=== PATIENT | female | born 1960 | race Caucasian/White ===

== ENCOUNTER → 2019-12-30 | Outpatient (CLI) | payer OTHER ==
[~2019-12-30] MED LIST: AMLO5TAB6 PO; ATOR40TA75 PO; CVS10CAP8 PO; DIFL200T PO; ECOT81TA5 PO; ESTR62CR PV; FLON1SPR; LIDO1CRE2 TOP; LISI10TA4 PO; OMEP-218 PO; TOPR50TA PO; TRES1INJ2 SC; VITA-157 PO; VITAD1000T PO
== END ==
LOC: M LABSMTC 08:34 → EDUNIT# 08:40
PROVIDERS: ATTEND Anesthesiology
DX: Z01.818 Encounter for other preprocedural examination (principal); Z11.59 Encounter for screening for other viral diseases
CPT/HCPCS: C9803; U0003

== ENCOUNTER 2020-01-02 10:23 | Day surgery (SDC) | payer OTHER ==
[~2020-01-02] VITALS: Ht 152.4 cm; Wt 71.8 kg
[~2020-01-02 10:23] MED LIST changes: +NS 1,000 ML IV ONE
[2020-01-02] MEDS ORDERED: fentaNYL 100 MCG/2 ML INJECTION (J3010) As Ordered ONE (12:10)
[2020-01-02] MEDS ORDERED: ePHEDrine SULFATE 25 MG/5 ML(5MG/ML) SYRINGE As Ordered ONE (12:22)
--- NOTE | 2020-01-02 13:01 | ROOR ---
Patient Name: Catarina Mccord Procedure Date: 01/02/2020 12:13 PM Date of : 1960 Age: 59 Room: [facility] Gender: Female Note Status: Finalized Procedure: Upper GI endoscopy Indications: Iron deficiency anemia Providers: Adan Fontana MD Referring MD: Adan Fontana MD Requesting Provider: Medicines: Monitored Anesthesia Care Complications: No immediate complications. Procedure: Pre-Anesthesia Assessment: - Prior to the procedure, a History and Physical was performed, and patient medications and allergies were reviewed. The patient is competent. The risks and benefits of the procedure and the sedation options and risks were discussed with the patient. All questions were answered and informed consent was obtained. Patient identification and proposed procedure were verified by the physician, the nurse and the anesthesiologist in the procedure room. Mental Status Examination: alert and oriented. Airway Examination: normal oropharyngeal airway and neck mobility. Respiratory Examination: clear to auscultation. CV Examination: normal. Prophylactic Antibiotics: The patient does not require prophylactic antibiotics. Prior Anticoagulants: The patient has taken no previous anticoagulant or antiplatelet agents. ASA Grade Assessment: II - A patient with mild systemic disease. After reviewing the risks and benefits, the patient was deemed in satisfactory condition to undergo the procedure. The anesthesia plan was to use monitored anesthesia care (MAC). Immediately prior to administration of medications, the patient was re-assessed for adequacy to receive sedatives. The heart rate, respiratory rate, oxygen saturations, blood pressure, adequacy of pulmonary ventilation, and response to care were monitored throughout the procedure. The physical status of the patient was re-assessed after the procedure. The Endoscope was introduced through the mouth, and advanced to the second part of duodenum. The upper GI endoscopy was accomplished without difficulty. The patient tolerated the procedure well. Findings: One tongue of salmon-colored mucosa was present from 39 to 41 cm. No other visible abnormalities were present. The maximum longitudinal extent of these esophageal mucosal changes was 2 cm in length. Biopsies were taken with a cold forceps for histology. Verification of patient identification for the specimen was done by the physician and nurse using the patient's name, date and medical record number. Estimated blood loss was minimal. Scattered mild inflammation characterized by erythema and granularity was found in the gastric antrum. Biopsies were taken with a cold forceps for Helicobacter pylori testing. The duodenal bulb and second portion of the duodenum were normal. Biopsies for histology were taken with a cold forceps for evaluation of celiac disease. Impression: - [place]-colored mucosa suspicious for short-segment Sanchez's esophagus. Biopsied. - Gastritis. Biopsied. - Normal duodenal bulb and second portion of the duodenum. Biopsied. Recommendation: - Patient has a contact number available for emergencies. The signs and symptoms of potential delayed complications were discussed with the patient. Return to normal activities tomorrow. Written discharge instructions were provided to the patient. - Resume previous diet. - Continue present medications. - Follow an antireflux regimen. - Await pathology results. - Return to GI clinic in [facility] (address [address], [address], [place] [address]) in 4 -- 6 weeks. Please call GI clinic @ [phone] for apppointment date and time. - Return to primary care physician. Adan Fontana MD Adan Fontana MD 01/02/2020 1:00:36 PM Electronically signed by Adan Fontana MD Number of Addenda: 0 Note Initiated On: 01/02/2020 12:13 PM Estimated Blood Loss: Estimated blood loss was minimal.
[2020-01-02 13:15] VITALS: BP 176/74
--- NOTE | 2020-01-02 13:35 | ROOR ---
Patient Name: Catarina Mccord Procedure Date: 01/02/2020 12:14 PM Date of : 1960 Age: 59 Room: [facility] Gender: Female Note Status: Finalized Procedure: Colonoscopy Indications: High risk colon cancer surveillance: Inflammatory bowel disease (unclassified) of 8 (or more) years duration with one-third (or more) of the colon involved Providers: Adan Fontana MD Referring MD: Adan Fontana MD Requesting Provider: Medicines: Monitored Anesthesia Care Complications: No immediate complications. Procedure: Pre-Anesthesia Assessment: - Prior to the procedure, a History and Physical was performed, and patient medications and allergies were reviewed. The patient is competent. The risks and benefits of the procedure and the sedation options and risks were discussed with the patient. All questions were answered and informed consent was obtained. Patient identification and proposed procedure were verified by the physician, the nurse and the anesthesiologist in the procedure room. Mental Status Examination: alert and oriented. Airway Examination: normal oropharyngeal airway and neck mobility. Respiratory Examination: clear to auscultation. CV Examination: normal. Prophylactic Antibiotics: The patient does not require prophylactic antibiotics. Prior Anticoagulants: The patient has taken no previous anticoagulant or antiplatelet agents. ASA Grade Assessment: II - A patient with mild systemic disease. After reviewing the risks and benefits, the patient was deemed in satisfactory condition to undergo the procedure. The anesthesia plan was to use monitored anesthesia care (MAC). Immediately prior to administration of medications, the patient was re-assessed for adequacy to receive sedatives. The heart rate, respiratory rate, oxygen saturations, blood pressure, adequacy of pulmonary ventilation, and response to care were monitored throughout the procedure. The physical status of the patient was re-assessed after the procedure. The Colonoscope was introduced through the anus and advanced to the terminal ileum, with identification of the appendiceal orifice and IC valve. The colonoscopy was performed without difficulty. The patient tolerated the procedure well. The quality of the bowel preparation was good. The terminal ileum, ileocecal valve, appendiceal orifice, and rectum were photographed. Scope insertion time was 3 minutes. Scope withdrawal time was 10 minutes. The total duration of the procedure was 14 minutes. Findings: The perianal and digital rectal examinations were normal. The terminal ileum appeared normal. Biopsies were taken with a cold forceps for histology. Verification of patient identification for the specimen was done by the physician and nurse using the patient's name, date and medical record number. Estimated blood loss was minimal. Diffuse mild mucosal changes characterized by loss of vascularity, pseudopolyps and scarring were found from rectum to descending colon. Two biopsies were taken every 10 cm with a cold forceps from the entire colon for dysplasia surveillance and ulcerative colitis surveillance. These biopsy specimens from the entire colon were sent to Pathology. Non-bleeding external and internal hemorrhoids were found during retroflexion. The hemorrhoids were small. Impression: - The examined portion of the ileum was normal. Biopsied. - Diffuse mild mucosal changes were found from rectum to descending colon secondary to colitis. Biopsied. - Non-bleeding external and internal hemorrhoids. Recommendation: - Patient has a contact number available for emergencies. The signs and symptoms of potential delayed complications were discussed with the patient. Return to normal activities tomorrow. Written discharge instructions were provided to the patient. - High fiber diet. - Continue present medications. - Await pathology results. - Return to GI clinic in [facility] (address [address] [facility] [address] [address]) in 4 -- 6 weeks. Please call GI clinic @ [phone] for apppointment date and time. - Return to primary care physician. Adan Fontana MD Adan Fontana MD 01/02/2020 1:34:58 PM Electronically signed by Adan Fontana MD Number of Addenda: 0 Note Initiated On: 01/02/2020 12:14 PM Estimated Blood Loss: Estimated blood loss was minimal.
== END 2020-01-02 13:16 | disposition home or self-care (01) ==
LOC: M OPP 10:23
PROVIDERS: ATTEND Internal Medicine Gastroenterology
DX: K52.3 Indeterminate colitis (principal); K64.8 Other hemorrhoids; K22.8 Other specified diseases of esophagus; K29.70 Gastritis, unspecified, without bleeding; D50.9 Iron deficiency anemia, unspecified; E11.9 Type 2 diabetes mellitus without complications; I10 Essential (primary) hypertension; Z79.899 Other long term (current) drug therapy; Z88.8 Allergy status to other drugs, medicaments and biological substances
CPT/HCPCS: 43239; 45380; 88305; J3010

== ENCOUNTER 2020-08-21 14:28 | Outpatient (CLI) | payer OTHER ==
[~2020-08-21] VITALS: Ht 152.4 cm; Wt 71.3 kg
[~2020-08-21 14:28] MED LIST changes: +AMLO1TAB24 PO; -AMLO5TAB6 PO; +D31000TA2 PO; +LISI10TA22 PO; -LISI10TA4 PO; -NS 1,000 ML IV ONE; -VITAD1000T PO
[2020-08-21 14:55] VITALS: BP 187/77
[2020-08-21 15:00] VITALS: BP 174/88
[2020-08-21] MEDS ORDERED: VEDOLIZUMAB 300 MG in NS 250 ML IV ONE (15:00)
[2020-08-21] MEDS ORDERED: COLA100C5 PO (15:53)
[2020-08-21] MEDS ORDERED: BUDE3CAP PO (15:53)
[2020-08-21] MEDS ORDERED: ENTY1INJ IV (15:53)
[2020-08-21] MEDS ORDERED: METF500T13 PO (15:54)
[2020-08-21 16:30] VITALS: BP 160/78
[2020-08-21 17:00] VITALS: BP 148/80
== END 2020-08-21 17:00 | disposition home or self-care (01) ==
LOC: M INFU 14:28
PROVIDERS: ATTEND Internal Medicine Gastroenterology
DX: K51.90 Ulcerative colitis, unspecified, without complications (principal)
CPT/HCPCS: 96365; J3380

== ENCOUNTER 2020-09-04 14:44 | Outpatient (CLI) | payer OTHER ==
[~2020-09-04] VITALS: Ht 152.4 cm; Wt 71.3 kg
[~2020-09-04 14:44] MED LIST changes: +BUDE3CAP PO; +COLA100C5 PO; +ENTY1INJ IV; -LISI10TA22 PO; +LISI10TA4 PO; +METF500T13 PO
[2020-09-04] MEDS ORDERED: VEDOLIZUMAB 300 MG in NS 250 ML IV ONE (15:00)
[2020-09-04 15:27] VITALS: BP 176/72
[2020-09-04 16:00] VITALS: BP 172/74
== END 2020-09-04 16:05 | disposition home or self-care (01) ==
LOC: M INFU 14:44
PROVIDERS: ATTEND Internal Medicine Gastroenterology
DX: K51.90 Ulcerative colitis, unspecified, without complications (principal)
CPT/HCPCS: 96365; J3380

== ENCOUNTER 2020-10-02 14:33 | Outpatient (CLI) | payer OTHER ==
[~2020-10-02] VITALS: Ht 152.4 cm; Wt 71.3 kg
[~2020-10-02 14:33] MED LIST changes: +LISI10TA22 PO; -LISI10TA4 PO; -VITA-157 PO; +VITAE40CA PO
[2020-10-02] MEDS ORDERED: VEDOLIZUMAB 300 MG in NS 250 ML IV ONE (15:00)
[2020-10-02 15:55] VITALS: BP 144/64
== END 2020-10-02 15:55 | disposition home or self-care (01) ==
LOC: M INFU 14:33
PROVIDERS: ATTEND Internal Medicine Gastroenterology
DX: K51.90 Ulcerative colitis, unspecified, without complications (principal); Z88.8 Allergy status to other drugs, medicaments and biological substances
CPT/HCPCS: 96365; J3380

== ENCOUNTER → 2020-11-06 | Outpatient (REF) | payer OTHER ==
[2020-11-06 19:19] LABS: CREATININE, URINE 47.5 MG/DL; MALB URINE SIEMENS 18.7 MG/L; MAU/CREAT RATIO 39.3 MCG/MG (0.0-30.0)
== END ==
LOC: M LAB REF 17:16
PROVIDERS: ATTEND Nurse Practitioner Family
DX: E11.65 Type 2 diabetes mellitus with hyperglycemia (principal)

== ENCOUNTER 2021-01-22 14:43 | Outpatient (CLI) | payer OTHER ==
[~2021-01-22] VITALS: Ht 152.4 cm; Wt 71.3 kg
[~2021-01-22 14:43] MED LIST changes: -CVS10CAP8 PO; +MELA10CA6 PO
[2021-01-22] MEDS ORDERED: VEDOLIZUMAB 300 MG in NS 250 ML IV ONE (15:00)
[2021-01-22 15:08] VITALS: BP 144/67
[2021-01-22 15:16] VITALS: BP 144/67
[2021-01-22] MEDS ORDERED: METF10004 PO (15:35)
[2021-01-22 16:05] VITALS: BP 138/63
== END 2021-01-22 16:05 | disposition home or self-care (01) ==
LOC: M INFU 14:43
PROVIDERS: ATTEND Internal Medicine Gastroenterology
DX: K51.90 Ulcerative colitis, unspecified, without complications (principal)
CPT/HCPCS: 96365; J3380

== ENCOUNTER 2021-03-19 15:06 | Outpatient (CLI) | payer OTHER ==
[~2021-03-19] VITALS: Ht 149.9 cm; Wt 71.3 kg
[~2021-03-19 15:06] MED LIST changes: +METF10004 PO; +VEDOLIZUMAB 300 MG in NS 250 ML IV ONE
[2021-03-19 15:10] VITALS: BP 148/68
[2021-03-19 16:00] VITALS: BP 138/72
== END 2021-03-19 16:10 | disposition home or self-care (01) ==
LOC: M INFU 15:06
PROVIDERS: ATTEND Internal Medicine Gastroenterology
DX: K51.90 Ulcerative colitis, unspecified, without complications (principal)
CPT/HCPCS: 96365; J3380

== ENCOUNTER 2021-05-14 14:44 | Outpatient (CLI) | payer OTHER ==
[~2021-05-14] VITALS: Ht 149.9 cm; Wt 71.3 kg
[~2021-05-14 14:44] MED LIST changes: -VEDOLIZUMAB 300 MG in NS 250 ML IV ONE
[2021-05-14] MEDS ORDERED: VEDOLIZUMAB 300 MG in NS 250 ML IV ONE (15:00)
[2021-05-14 15:15] VITALS: BP 135/60
[2021-05-14 16:15] VITALS: BP 134/76
== END 2021-05-14 16:15 | disposition home or self-care (01) ==
LOC: M INFU 14:44
PROVIDERS: ATTEND Internal Medicine Gastroenterology
DX: K51.90 Ulcerative colitis, unspecified, without complications (principal); Z88.8 Allergy status to other drugs, medicaments and biological substances
CPT/HCPCS: 96365; J3380

== ENCOUNTER 2021-07-09 14:23 | Outpatient (CLI) | payer OTHER ==
[~2021-07-09] VITALS: Ht 149.9 cm; Wt 71.3 kg
[2021-07-09] MEDS ORDERED: VEDOLIZUMAB 300 MG in NS 250 ML IV ONE (15:00)
[2021-07-09 15:50] VITALS: BP 130/60
== END 2021-07-09 16:00 | disposition home or self-care (01) ==
LOC: M INFU 14:23
PROVIDERS: ATTEND Internal Medicine Gastroenterology
DX: K51.90 Ulcerative colitis, unspecified, without complications (principal); Z88.8 Allergy status to other drugs, medicaments and biological substances
CPT/HCPCS: 96365; J3380

== ENCOUNTER 2021-09-03 14:26 | Outpatient (CLI) | payer OTHER ==
[~2021-09-03] VITALS: Ht 149.9 cm; Wt 61.8 kg
[~2021-09-03 14:26] MED LIST changes: +OMEP-173 PO; -OMEP-218 PO
[2021-09-03 14:40] VITALS: BP 157/60
[2021-09-03] MEDS ORDERED: VEDOLIZUMAB 300 MG in NS 250 ML IV ONE (15:00)
[2021-09-03 16:15] VITALS: BP 146/65
== END 2021-09-03 16:15 | disposition home or self-care (01) ==
LOC: M INFU 14:26
PROVIDERS: ATTEND Internal Medicine Gastroenterology
DX: K51.90 Ulcerative colitis, unspecified, without complications (principal); Z88.8 Allergy status to other drugs, medicaments and biological substances
CPT/HCPCS: 96365; J3380

== ENCOUNTER 2021-10-29 13:54 | Outpatient (CLI) | payer OTHER ==
[~2021-10-29] VITALS: Ht 147.3 cm; Wt 71.3 kg
[~2021-10-29 13:54] MED LIST changes: -D31000TA2 PO; +VITA100093 PO
[2021-10-29 14:10] VITALS: BP 148/65
[2021-10-29] MEDS ORDERED: VEDOLIZUMAB 300 MG in NS 250 ML IV ONE (15:00)
[2021-10-29 15:32] VITALS: BP 153/74
== END 2021-10-29 15:35 | disposition home or self-care (01) ==
LOC: M INFU 13:54
PROVIDERS: ATTEND Internal Medicine Gastroenterology
DX: K51.90 Ulcerative colitis, unspecified, without complications (principal); Z88.8 Allergy status to other drugs, medicaments and biological substances
CPT/HCPCS: 96365; J3380

== ENCOUNTER 2021-12-24 11:51 | Outpatient (CLI) | payer OTHER ==
[~2021-12-24] VITALS: Ht 147.3 cm; Wt 71.3 kg
[2021-12-24 12:16] VITALS: BP 131/85
[2021-12-24 13:45] VITALS: BP 131/58
[2021-12-24] MEDS ORDERED: VEDOLIZUMAB 300 MG in NS 250 ML IV ONE (15:00)
== END 2021-12-24 13:45 | disposition home or self-care (01) ==
LOC: M INFU 11:51
PROVIDERS: ATTEND Internal Medicine Gastroenterology
DX: K51.90 Ulcerative colitis, unspecified, without complications (principal); Z88.8 Allergy status to other drugs, medicaments and biological substances
CPT/HCPCS: 96365; J3380

== ENCOUNTER 2022-02-18 14:20 | Outpatient (CLI) | payer OTHER ==
[~2022-02-18] VITALS: Ht 152.4 cm; Wt 65.0 kg
[2022-02-18 14:20] VITALS: BP 130/60
[~2022-02-18 14:20] MED LIST changes: -AMLO1TAB25 PO; -INSULIN NOVALOG SQ
[2022-02-18] MEDS ORDERED: INSULIN NOVALOG SQ (14:46)
[2022-02-18] MEDS ORDERED: AMLO1TAB25 PO (14:47)
[2022-02-18] MEDS ORDERED: VEDOLIZUMAB 300 MG in NS 250 ML IV ONE (15:00)
[2022-02-18 15:35] VITALS: BP 157/67
== END 2022-02-18 15:35 | disposition home or self-care (01) ==
LOC: M INFU 14:20
PROVIDERS: ATTEND Internal Medicine Gastroenterology
DX: K51.919 Ulcerative colitis, unspecified with unspecified complications (principal); Z88.8 Allergy status to other drugs, medicaments and biological substances
CPT/HCPCS: 96365; J3380

== ENCOUNTER → 2022-02-18 | Outpatient (REF) | payer OTHER ==
[~2022-02-18] MED LIST changes: +AMLO1TAB25 PO; +INSULIN NOVALOG SQ
[2022-02-18 19:40] LABS: CREATININE, URINE 23.7 MG/DL; MAU/CREAT RATIO 50.6 MCG/MG (0.0-30.0)
== END ==
LOC: M LAB REF 16:52
PROVIDERS: ATTEND Nurse Practitioner Family
DX: E11.65 Type 2 diabetes mellitus with hyperglycemia (principal)

== ENCOUNTER 2022-04-15 14:10 | Outpatient (CLI) | payer OTHER ==
[~2022-04-15] VITALS: Ht 152.4 cm; Wt 65.0 kg
[2022-04-15 14:10] VITALS: BP 149/66
[~2022-04-15 14:10] MED LIST changes: +AMLO1TAB25 PO; +INSULIN NOVALOG SQ
[2022-04-15] MEDS ORDERED: VEDOLIZUMAB 300 MG in NS 250 ML IV ONE (15:00)
[2022-04-15 15:20] VITALS: BP 141/63
== END 2022-04-15 15:20 | disposition home or self-care (01) ==
LOC: M INFU 14:10
PROVIDERS: ATTEND Internal Medicine Gastroenterology
DX: K51.90 Ulcerative colitis, unspecified, without complications (principal); Z88.8 Allergy status to other drugs, medicaments and biological substances
CPT/HCPCS: 96365; J3380

== ENCOUNTER 2022-06-10 13:30 | Outpatient (CLI) | payer OTHER ==
[~2022-06-10] VITALS: Ht 152.4 cm; Wt 66.8 kg
[2022-06-10 13:30] VITALS: BP 144/76
[2022-06-10 14:45] VITALS: BP 136/60
[2022-06-10] MEDS ORDERED: VEDOLIZUMAB 300 MG in NS 250 ML IV ONE (15:00)
== END 2022-06-10 14:45 | disposition home or self-care (01) ==
LOC: M INFU 13:30
PROVIDERS: ATTEND Internal Medicine Gastroenterology
DX: K51.90 Ulcerative colitis, unspecified, without complications (principal); Z88.9 Allergy status to unspecified drugs, medicaments and biological substances
CPT/HCPCS: 96365; J3380

== ENCOUNTER 2022-08-05 13:23 | Outpatient (CLI) | payer OTHER ==
[~2022-08-05] VITALS: Ht 152.4 cm; Wt 66.8 kg
[2022-08-05 14:05] VITALS: BP 162/70
[2022-08-05] MEDS ORDERED: VEDOLIZUMAB 300 MG in NS 250 ML IV ONE (14:30)
[2022-08-05 15:06] LABS: BASO # 0.1 10^3/uL (0.0-0.2); BASO % 0.6 % (0.0-1.0); EOS # 0.1 10^3/uL (0.0-0.5); EOS % 1.6 % (0.0-3.0); HEMOGLOBIN 8.3 g/dl (12.0-15.5); LYMPH # 3.1 10^3/uL (1.5-5.0); LYMPH % 35.4 % (24.0-44.0); MEAN CORPUSCULAR HEMOGLOBIN 24.5 pg (27.0-33.0); MEAN CORPUSCULAR HGB CONC 29.6 g/dl (32.0-36.5); MEAN CORPUSCULAR VOLUME 82.6 fl (80.0-96.0); MONO # 0.7 10^3/uL (0.0-0.8); MONO % 7.6 % (2.0-8.0); NEUTROPHILS # 4.8 10^3/uL (1.5-8.5); NEUTROPHILS % 54.5 % (36.0-66.0); PLATELET COUNT, AUTOMATED 348 10^3/uL (150-450); RED BLOOD COUNT 3.39 10^6/uL (4.00-5.40); WHITE BLOOD COUNT 8.8 10^3/uL (4.0-10.0)
[2022-08-05 15:22] LABS: INR 0.94; PARTIAL THROMBOPLASTIN TIME 25.5 SECONDS (24.8-34.2); PROTHROMBIN TIME 12.8 SECONDS (12.5-14.5)
[2022-08-05 15:23] LABS: ERYTHROCYTE SEDIMENTATION RATE 47 mm/hr (0-30)
[2022-08-05 15:30] LABS: ALBUMIN 3.6 G/DL (3.2-5.2); ALKALINE PHOSPHATASE 81 U/L (46-116); ALT/SGPT 19 U/L (7.0-40); AST/SGOT 13 U/L (<34); BILIRUBIN,DIRECT < 0.1 MG/DL (<0.4); BILIRUBIN,TOTAL 0.3 MG/DL (0.3-1.2); BLOOD UREA NITROGEN 22 MG/DL (9-23); C REACTIVE PROTEIN QUANTITATIV < 0.40 MG/DL (<1.0); CREATININE FOR GFR 1.03 MG/DL (0.55-1.30); GLOMERULAR FILTRATION RATE 57.8 (>45); IRON (FE) 25 UG/DL (50-170); TOTAL IRON BINDING CAPACITY 414 UG/DL (250-425); TOTAL PROTEIN 7.2 G/DL (5.7-8.2)
[2022-08-05 15:32] LABS: FERRITIN 6.6 NG/ML (7.3-270.7)
[2022-08-05 16:00] VITALS: BP 142/63
== END 2022-08-05 16:00 | disposition home or self-care (01) ==
LOC: M INFU 13:23
PROVIDERS: ATTEND Internal Medicine Gastroenterology
DX: K51.90 Ulcerative colitis, unspecified, without complications (principal); Z88.9 Allergy status to unspecified drugs, medicaments and biological substances
CPT/HCPCS: 36592; 80076; 82565; 82728; 83550; 84520; 85025; 85610; 85652; 85730; 86140; 86480; 96365; J3380

== ENCOUNTER 2022-09-30 14:55 | Outpatient (CLI) | payer OTHER ==
[~2022-09-30] VITALS: Ht 152.4 cm; Wt 66.8 kg
[2022-09-30 14:55] VITALS: BP 135/60
[2022-09-30] MEDS ORDERED: VEDOLIZUMAB 300 MG in NS 250 ML IV ONE (15:00)
== END 2022-09-30 16:30 | disposition home or self-care (01) ==
LOC: M INFU 14:55
PROVIDERS: ATTEND Internal Medicine Gastroenterology
DX: K51.90 Ulcerative colitis, unspecified, without complications (principal); Z88.8 Allergy status to other drugs, medicaments and biological substances
CPT/HCPCS: 96365; J3380

== ENCOUNTER 2022-11-25 13:55 | Outpatient (CLI) | payer OTHER ==
[~2022-11-25] VITALS: Ht 152.4 cm; Wt 68.1 kg
[2022-11-25 13:55] VITALS: BP 145/56
[2022-11-25] MEDS ORDERED: VEDOLIZUMAB 300 MG in NS 250 ML IV ONE (15:00)
[2022-11-25 15:05] VITALS: BP 135/78
== END 2022-11-25 15:05 | disposition home or self-care (01) ==
LOC: M INFU 13:55
PROVIDERS: ATTEND Internal Medicine Gastroenterology
DX: K51.90 Ulcerative colitis, unspecified, without complications (principal); Z88.8 Allergy status to other drugs, medicaments and biological substances
CPT/HCPCS: 96365; J3380

== ENCOUNTER → 2023-01-20 | Outpatient (CLI) | payer OTHER ==
[~2023-01-20] MED LIST changes: +VEDOLIZUMAB 300 MG in NS 250 ML IV ONE
[2023-01-20 14:55] VITALS: BP 133/58; O2SAT 97
[2023-01-20 15:31] VITALS: BP 110/50; O2SAT 98
== END ==
LOC: M INFU 14:50
PROVIDERS: ATTEND Internal Medicine Gastroenterology
DX: K51.90 Ulcerative colitis, unspecified, without complications (principal); Z79.02 Long term (current) use of antithrombotics/antiplatelets
CPT/HCPCS: 96365; J3380

== ENCOUNTER 2023-03-17 14:45 | Outpatient (CLI) | payer OTHER ==
[~2023-03-17] VITALS: Ht 152.4 cm; Wt 65.0 kg
[2023-03-17 14:40] VITALS: BP 170/68; O2SAT 97
[~2023-03-17 14:45] MED LIST changes: -VEDOLIZUMAB 300 MG in NS 250 ML IV ONE
[2023-03-17] MEDS ORDERED: VEDOLIZUMAB 300 MG in NS 250 ML IV ONE (15:00)
[2023-03-17 15:58] VITALS: BP 129/60; O2SAT 99
== END 2023-03-17 16:00 ==
LOC: M INFU 14:45
PROVIDERS: ATTEND Internal Medicine Gastroenterology
DX: K51.90 Ulcerative colitis, unspecified, without complications (principal); Z79.01 Long term (current) use of anticoagulants
CPT/HCPCS: 96365; J3380

== ENCOUNTER → 2023-04-01 | Outpatient (REF) | payer OTHER ==
[2023-04-01 18:49] LABS: CREATININE, URINE 21.4 MG/DL
== END ==
LOC: M LAB REF 17:07
PROVIDERS: ATTEND Nurse Practitioner Family
DX: E11.65 Type 2 diabetes mellitus with hyperglycemia (principal)

== ENCOUNTER 2023-05-10 07:40 | Day surgery (SDC) | payer OTHER ==
[~2023-05-10] VITALS: Ht 152.4 cm; Wt 62.6 kg
[~2023-05-10 07:40] MED LIST changes: +ASPI-255 PO; +CLOB5CR TOP; +INSUH10VL SC; +NS 1,000 ML IV ONE; +OMEP40CA4 PO; +TRUL10IN SC; +VAGI10TA VA
[2023-05-10] MEDS ORDERED: LIDOCAINE 2% 100MG/5ML SDV (FOR ANES.) As Ordered ONE (09:15)
[2023-05-10] MEDS ORDERED: propofoL 200 MG/20 ML VIAL As Ordered ONE (09:15)
[2023-05-10] MEDS ORDERED: PHENYLephrine 500MCG 5ML (100MCG/ML) SYRINGE As Ordered ONE (09:28)
[2023-05-10] MEDS ORDERED: CALCIUM CHLORIDE 10% 1 GM/10 ML SYR As Ordered ONE (09:40)
[2023-05-10 10:03] VITALS: TEMP 97
[2023-05-10 10:26] VITALS: BP 163/74; O2SAT 96
== END 2023-05-10 10:31 | disposition home or self-care (01) ==
LOC: M OPP 07:40
PROVIDERS: ATTEND Internal Medicine Gastroenterology
DX: K55.20 Angiodysplasia of colon without hemorrhage (principal); K63.89 Other specified diseases of intestine; K62.4 Stenosis of anus and rectum; D50.9 Iron deficiency anemia, unspecified; K22.89 Other specified disease of esophagus; K29.70 Gastritis, unspecified, without bleeding; I35.9 Nonrheumatic aortic valve disorder, unspecified; I25.10 Atherosclerotic heart disease of native coronary artery without angina pectoris; E11.9 Type 2 diabetes mellitus without complications; Z91.89 Other specified personal risk factors, not elsewhere classified; Z79.02 Long term (current) use of antithrombotics/antiplatelets; Z79.1 Long term (current) use of non-steroidal anti-inflammatories (NSAID); Z79.52 Long term (current) use of systemic steroids; Z79.620 Long term (current) use of immunosuppressive biologic; Z79.82 Long term (current) use of aspirin; Z79.84 Long term (current) use of oral hypoglycemic drugs; Z79.85 Long-term (current) use of injectable non-insulin antidiabetic drugs; Z79.891 Long term (current) use of opiate analgesic; Z79.899 Other long term (current) drug therapy; Z88.8 Allergy status to other drugs, medicaments and biological substances; Z91.041 Radiographic dye allergy status
CPT/HCPCS: 43239; 45380; 45382; 88305; J2371

== ENCOUNTER 2023-05-12 14:15 | Outpatient (CLI) | payer OTHER ==
[~2023-05-12] VITALS: Ht 152.4 cm; Wt 62.0 kg
[~2023-05-12 14:15] MED LIST changes: -NS 1,000 ML IV ONE
[2023-05-12 14:25] VITALS: BP 146/63; TEMP 97.1; O2SAT 100
[2023-05-12] MEDS ORDERED: VEDOLIZUMAB 300 MG in NS 250 ML IV ONE (15:00)
[2023-05-12 15:16] VITALS: BP 143/67; O2SAT 97
== END 2023-05-12 15:20 ==
LOC: M INFU 14:15
PROVIDERS: ATTEND Internal Medicine Gastroenterology
DX: K51.90 Ulcerative colitis, unspecified, without complications (principal); Z88.8 Allergy status to other drugs, medicaments and biological substances
CPT/HCPCS: 96365; J3380

== ENCOUNTER 2023-07-07 14:30 | Outpatient (CLI) | payer OTHER ==
[~2023-07-07] VITALS: Ht 152.4 cm; Wt 63.6 kg
[2023-07-07 14:32] VITALS: BP 168/72; O2SAT 97
[2023-07-07] MEDS ORDERED: VEDOLIZUMAB 300 MG in NS 250 ML IV ONE (15:00)
[2023-07-07 16:10] VITALS: BP 153/70; O2SAT 97
== END 2023-07-07 16:10 | disposition home or self-care (01) ==
LOC: M INFU 14:30
PROVIDERS: ATTEND Internal Medicine Gastroenterology
DX: K51.90 Ulcerative colitis, unspecified, without complications (principal)
CPT/HCPCS: 96365; J3380

== ENCOUNTER → 2023-09-01 | Outpatient (CLI) | payer OTHER ==
[~2023-09-01] VITALS: Ht 152.4 cm; Wt 63.6 kg
[~2023-09-01] MED LIST changes: +VEDOLIZUMAB 300 MG in NS 250 ML IV ONE
[2023-09-01 15:38] LABS: BASO # 0.1 10^3/uL (0.0-0.2); BASO % 0.7 % (0.0-1.0); EOS # 0.2 10^3/uL (0.0-0.5); HEMATOCRIT 34.1 % (36.0-47.0); HEMOGLOBIN 11.3 g/dl (12.0-15.5); LYMPH # 2.6 10^3/uL (1.5-5.0); LYMPH % 28.9 % (24.0-44.0); MEAN CORPUSCULAR HGB CONC 33.1 g/dl (32.0-36.5); MEAN CORPUSCULAR VOLUME 99.7 fl (80.0-96.0); MONO # 0.7 10^3/uL (0.0-0.8); MONO % 7.7 % (2.0-8.0); NEUTROPHILS # 5.5 10^3/uL (1.5-8.5); NEUTROPHILS % 60.4 % (36.0-66.0); PLATELET COUNT, AUTOMATED 228 10^3/uL (150-450); RED BLOOD COUNT 3.42 10^6/uL (4.00-5.40)
[2023-09-01 16:00] VITALS: BP 144/63; O2SAT 98
[2023-09-01 16:06] LABS: ERYTHROCYTE SEDIMENTATION RATE 16 mm/hr (0-30)
[2023-09-01 16:06] LABS: C REACTIVE PROTEIN QUANTITATIV < 0.40 MG/DL (<1.0)
[2023-09-01 16:07] LABS: IRON (FE) 77 UG/DL (50-170); PERCENT SATURATION 22.6 % (13.2-45.0); TOTAL IRON BINDING CAPACITY 341 UG/DL (250-425)
[2023-09-01 16:10] LABS: FERRITIN 24.4 NG/ML (7.3-270.7)
== END ==
LOC: M INFU 13:51
PROVIDERS: ATTEND Internal Medicine Gastroenterology
DX: K51.90 Ulcerative colitis, unspecified, without complications (principal); Z88.8 Allergy status to other drugs, medicaments and biological substances; Z91.041 Radiographic dye allergy status
CPT/HCPCS: 82728; 83550; 85025; 85652; 86140; 96365; J3380

== ENCOUNTER → 2023-09-02 | Outpatient (REF) | payer OTHER ==
[~2023-09-02] MED LIST changes: -VEDOLIZUMAB 300 MG in NS 250 ML IV ONE
== END ==
LOC: M LAB REF 11:33
PROVIDERS: ATTEND Internal Medicine Gastroenterology
DX: K51.919 Ulcerative colitis, unspecified with unspecified complications (principal); D50.9 Iron deficiency anemia, unspecified

== ENCOUNTER 2023-10-27 10:00 | Outpatient (CLI) | payer OTHER ==
[~2023-10-27] VITALS: Ht 152.4 cm; Wt 63.6 kg
[2023-10-27 10:00] VITALS: BP 167/65; O2SAT 97
[2023-10-27] MEDS: VEDOLIZUMAB 300 MG in NS 250 ML IV ONE (10:30)
[2023-10-27 11:08] VITALS: BP 174/67; O2SAT 98
== END 2023-10-27 11:10 ==
LOC: M INFU 10:00
PROVIDERS: ATTEND Internal Medicine Gastroenterology
DX: K51.919 Ulcerative colitis, unspecified with unspecified complications (principal); Z91.041 Radiographic dye allergy status; Z88.8 Allergy status to other drugs, medicaments and biological substances
CPT/HCPCS: 96365; J3380

== ENCOUNTER → 2023-12-15 | Outpatient (CLI) | payer OTHER | LOC: M WHC 10:37 | PROVIDERS: ATTEND Nurse Practitioner Family | DX: Z12.31 Encounter for screening mammogram for malignant neoplasm of breast (principal) ==

== ENCOUNTER 2023-12-22 14:50 | Outpatient (CLI) | payer OTHER ==
[~2023-12-22] VITALS: Ht 152.4 cm; Wt 65.0 kg
[2023-12-22 14:50] VITALS: BP 154/63; O2SAT 95
[2023-12-22] MEDS: VEDOLIZUMAB 300 MG in NS 250 ML IV ONE (15:47)
[2023-12-22 16:23] VITALS: BP 150/67; O2SAT 98
== END 2023-12-22 16:25 | disposition home or self-care (01) ==
LOC: M INFU 14:50
PROVIDERS: ATTEND Internal Medicine Gastroenterology
DX: K51.90 Ulcerative colitis, unspecified, without complications (principal); Z88.8 Allergy status to other drugs, medicaments and biological substances; Z91.041 Radiographic dye allergy status
CPT/HCPCS: 96365; J3380

== ENCOUNTER → 2024-02-16 | Outpatient (CLI) | payer OTHER ==
[2024-02-16 15:00] VITALS: BP 146/69; O2SAT 98
[2024-02-16] MEDS: VEDOLIZUMAB 300 MG in NS 250 ML IV ONE (15:07)
[2024-02-16 15:45] VITALS: BP 158/66; O2SAT 98
== END ==
LOC: M INFU 14:06
PROVIDERS: ATTEND Internal Medicine Gastroenterology
DX: K51.90 Ulcerative colitis, unspecified, without complications (principal); Z88.8 Allergy status to other drugs, medicaments and biological substances; Z91.041 Radiographic dye allergy status
CPT/HCPCS: 96365; J3380

== ENCOUNTER 2024-05-02 13:50 | Outpatient (CLI) | payer OTHER ==
[~2024-05-02] VITALS: Ht 154.9 cm; Wt 64.0 kg
[2024-05-02 13:50] VITALS: BP 138/63; O2SAT 98
[2024-05-02] MEDS: VEDOLIZUMAB 300 MG in NS 250 ML IV ONE (14:58)
[2024-05-02 15:35] VITALS: BP 156/68; O2SAT 99
== END 2024-05-02 15:40 ==
LOC: M INFU 13:50
PROVIDERS: ATTEND Internal Medicine Gastroenterology
DX: K51.90 Ulcerative colitis, unspecified, without complications (principal); Z88.8 Allergy status to other drugs, medicaments and biological substances; Z91.041 Radiographic dye allergy status
CPT/HCPCS: 96365; J3380

== ENCOUNTER 2024-06-27 10:55 | Outpatient (CLI) | payer OTHER ==
[~2024-06-27] VITALS: Ht 152.4 cm; Wt 65.9 kg
[2024-06-27 10:50] VITALS: BP 148/63; O2SAT 98
[~2024-06-27 10:55] MED LIST changes: -LIDO1CRE2 TOP; +LIDO4CRE12 TOP
[2024-06-27] MEDS: VEDOLIZUMAB 300 MG in NS 250 ML IV ONE (11:31)
[2024-06-27 12:08] VITALS: BP 132/87; O2SAT 97
== END 2024-06-27 12:10 ==
LOC: M INFU 10:55
PROVIDERS: ATTEND Internal Medicine Gastroenterology
DX: K51.90 Ulcerative colitis, unspecified, without complications (principal); Z88.8 Allergy status to other drugs, medicaments and biological substances; Z91.041 Radiographic dye allergy status
CPT/HCPCS: 96413; J3380

== ENCOUNTER 2024-09-06 11:37 | Outpatient (CLI) | payer OTHER ==
[~2024-09-06] VITALS: Ht 152.4 cm; Wt 68.0 kg
[~2024-09-06 11:37] MED LIST changes: +VEDOLIZUMAB 300 MG in NS 250 ML IV ONE
[2024-09-06 12:00] VITALS: BP 121/56; O2SAT 96
[2024-09-06] MEDS: VEDOLIZUMAB 300 MG in NS 250 ML IV ONE (12:39)
[2024-09-06 13:21] VITALS: BP 109/53; O2SAT 98
== END 2024-09-06 13:30 ==
LOC: M INFU 11:37
PROVIDERS: ATTEND Internal Medicine Gastroenterology
DX: K51.90 Ulcerative colitis, unspecified, without complications (principal); Z88.8 Allergy status to other drugs, medicaments and biological substances; Z91.041 Radiographic dye allergy status
CPT/HCPCS: 96413; J3380

== ENCOUNTER → 2024-11-01 | Outpatient (CLI) | payer OTHER ==
[~2024-11-01] VITALS: Ht 152.4 cm; Wt 68.1 kg
[~2024-11-01] MED LIST changes: -VEDOLIZUMAB 300 MG in NS 250 ML IV ONE
[2024-11-01 12:31] VITALS: BP 156/65; O2SAT 97
[2024-11-01] MEDS: VEDOLIZUMAB 300 MG in NS 250 ML IV ONE (12:56)
[2024-11-01 13:30] VITALS: BP 148/86; O2SAT 100
== END ==
LOC: M INFU 11:47
PROVIDERS: ATTEND Internal Medicine Gastroenterology
DX: K51.919 Ulcerative colitis, unspecified with unspecified complications (principal); Z88.3 Allergy status to other anti-infective agents; Z88.8 Allergy status to other drugs, medicaments and biological substances; Z91.041 Radiographic dye allergy status
CPT/HCPCS: 96413; J3380

== ENCOUNTER 2025-03-15 11:00 | Outpatient (CLI) | payer MEDICARE ==
[~2025-03-15] VITALS: Ht 152.4 cm; Wt 68.1 kg
[2025-03-15 16:45] VITALS: BP 158/67; TEMP 98.4; O2SAT 96
[2025-03-15] MEDS: VEDOLIZUMAB 300 MG in NS 250 ML IV ONE (17:07)
[2025-03-15 17:45] VITALS: BP 168/70; O2SAT 99
== END 2025-03-15 17:45 | disposition home or self-care (01) ==
LOC: M INFU 11:00
PROVIDERS: ATTEND Internal Medicine Gastroenterology
DX: K51.90 Ulcerative colitis, unspecified, without complications (principal); Z88.8 Allergy status to other drugs, medicaments and biological substances; Z91.041 Radiographic dye allergy status
CPT/HCPCS: 96413; J3380